=== PATIENT | male | born 1950 | race Caucasian/White ===

== ENCOUNTER 2018-06-06 11:15 | Inpatient (IN) | payer MEDICARE, BC ==
[~2018-06-06] VITALS: Ht 172.7 cm; Wt 74.3 kg
[~2018-06-06 11:15] MED LIST: ASPIRIN E.C. 8181 M1 PO; BETAPACE160 MG PO; CELEXA10 MG PO; CITALOPRAM10 MG PO; COUMADIN 5MG5 MG/TAB PO; LIPITOR20 MG PO; LOVENOX 8080 MG/0.8 SQ; MIRTAZAPINE15 MG PO; REMERON30 MG PO
[2018-06-06] MEDS ORDERED: COUMADIN 5MG5 MG/TAB (11:44)
[2018-06-06] MEDS ORDERED: BETAPACE 80MG80 MG PO (11:45)
[2018-06-06 12:02] LABS: BASO % 0.4 % (0.0-2.0); EOS # 0.1 (0.0-0.7); EOS % 1.1 % (0-4.0); GRAN # 7.8 (1.4-6.5); GRAN % 76.2 % (42.2-75.2); HEMATOCRIT 48.4 % (42.0-52.0); HEMOGLOBIN 16.8 g/dl (13.5-18.0); LYMPH # 1.5 (1.2-3.4); LYMPH % 14.8 % (20.0-51.0); MEAN CELL VOLUME 93 fl (80.0-100.0); MEAN CORPUSCULAR HEMOGLOBIN 32 pg (27.0-31.0); MEAN CORPUSCULAR HGB CONC 35 g/dl (33.0-37.0); MEAN PLATELET VOLUME 10.5 fl (7.4-10.4); MONO # 0.7 (0.1-0.6); MONO % 6.9 % (1.7-9.3); PLATELET COUNT 165 K/mm3 (130-400); RED BLOOD COUNT 5.23 M/mm3 (4.20-5.60); REDCELL DISTRIBUTION WIDTH-CV 13.1 % (11.5-14.5)
[2018-06-06 12:05] LABS: INR 2.3 (0.8-3.0); PROTHROMBIN TIME 26.7 SECONDS (9.7-12.8)
[2018-06-06 12:11] LABS: ALBUMIN 4.1 gm/dL (3.5-5.0); BILIRUBIN,TOTAL 0.6 mg/dL (0.0-1.0); CREATININE, serum 0.74 mg/dL (0.66-1.25); POTASSIUM 4.3 mmol/L (3.4-5.0); TOTAL PROTEIN 7.6 gm/dL (6.4-8.2)
[2018-06-06 14:32] VITALS: BP 152/86; PULSE 67; TEMP 98.6
[2018-06-06 15:40] VITALS: BP 163/70; PULSE 58; TEMP 98.3
[2018-06-06 16:40] VITALS: BP 163/70; PULSE 58; TEMP 98.4
[2018-06-06 19:25] VITALS: BP 129/74; PULSE 73; TEMP 97.6
[2018-06-06 20:53] VITALS: BP 147/80; PULSE 71; TEMP 98.1
[2018-06-07 03:30] VITALS: BP 151/85; PULSE 54; TEMP 97.5
[2018-06-07 06:14] LABS: BASO # 0.1 (0.0-0.2); BASO % 0.7 % (0.0-2.0); EOS # 0.2 (0.0-0.7); EOS % 3.1 % (0-4.0); GRAN # 4.1 (1.4-6.5); GRAN % 60.4 % (42.2-75.2); HEMATOCRIT 44.6 % (42.0-52.0); HEMOGLOBIN 15.4 g/dl (13.5-18.0); LYMPH # 1.7 (1.2-3.4); LYMPH % 25.3 % (20.0-51.0); MEAN CELL VOLUME 93 fl (80.0-100.0); MEAN CORPUSCULAR HEMOGLOBIN 32 pg (27.0-31.0); MEAN CORPUSCULAR HGB CONC 35 g/dl (33.0-37.0); MEAN PLATELET VOLUME 10.6 fl (7.4-10.4); MONO # 0.7 (0.1-0.6); MONO % 10.1 % (1.7-9.3); PLATELET COUNT 149 K/mm3 (130-400); REDCELL DISTRIBUTION WIDTH-CV 13.2 % (11.5-14.5)
[2018-06-07 06:18] LABS: INR 1.6 (0.8-3.0); PROTHROMBIN TIME 17.8 SECONDS (9.7-12.8)
[2018-06-07 06:31] LABS: CALCIUM 8.3 mg/dL (8.4-10.2); CREATININE, serum 0.84 mg/dL (0.66-1.25); POTASSIUM 3.7 mmol/L (3.4-5.0)
[2018-06-07 08:00] VITALS: BP 132/84; PULSE 93; TEMP 98.7
[2018-06-07 11:56] VITALS: BP 125/90; PULSE 107; TEMP 98.1
[2018-06-07 15:30] VITALS: BP 124/75; PULSE 94; TEMP 98.6
[2018-06-07 20:54] VITALS: BP 127/83; PULSE 96; TEMP 98.3
[2018-06-08] VITALS (15 sets, daily range): BP systolic 98–135; BP diastolic 64–87; PULSE 50–74; TEMP 97.8–98.6
[2018-06-08 06:36] LABS: INR 1.1 (0.8-3.0); PROTHROMBIN TIME 12.4 SECONDS (9.7-12.8)
[2018-06-09 00:41] VITALS: BP 120/65; PULSE 59; TEMP 97.6
[2018-06-09 04:51] VITALS: BP 132/70; PULSE 61; TEMP 97.5
[2018-06-09 06:21] LABS: INR 1.1 (0.8-3.0)
[2018-06-09 07:15] VITALS: BP 130/63; PULSE 68; TEMP 98.3
[2018-06-09 10:55] VITALS: BP 120/63; PULSE 68; TEMP 98.4
[2018-06-09] MEDS ORDERED: SENOKOT S 50 MG1 TAB PO (14:01)
[2018-06-09] MEDS ORDERED: NORCO 325 MG-7.1 TAB PO (14:01)
== END 2018-06-09 15:51 | disposition home or self-care (01) | DRG 494 ==
LOC: COL.ER 11:15 → SURG 12:57
PROVIDERS: Emergency Medicine; Internal Medicine; Orthopaedic Surgery
PROC: 0QSJXZZ Reposition Right Fibula, External Approach (ICD-10-PCS; 2018-06-06)
PROC: 0QSJ04Z Reposition Right Fibula with Internal Fixation Device, Open Approach (ICD-10-PCS; principal; 2018-06-08 13:30)
DX: S82.842A Displaced bimalleolar fracture of left lower leg, initial encounter for closed fracture (principal); W18.31XA Fall on same level due to stepping on an object, initial encounter; Z86.711 Personal history of pulmonary embolism; Z79.01 Long term (current) use of anticoagulants; E78.5 Hyperlipidemia, unspecified; I34.0 Nonrheumatic mitral (valve) insufficiency; F17.210 Nicotine dependence, cigarettes, uncomplicated; I27.20 Pulmonary hypertension, unspecified; I48.0 Paroxysmal atrial fibrillation; F32.9 Major depressive disorder, single episode, unspecified; M79.7 Fibromyalgia; Z85.46 Personal history of malignant neoplasm of prostate
CPT/HCPCS: 99222-AI; 99232-AI; 99239; C1713; J0690; J1100; J2250; J2270; J2405; J2704; J3010; J7030; J7120; Q4045

== ENCOUNTER 2020-10-18 22:36 | Emergency (ER) | payer MEDICARE, BC ==
[~2020-10-18] VITALS: Ht 172.7 cm; Wt 75.0 kg
[~2020-10-18 22:36] MED LIST changes: +BETAPACE 80MG80 MG PO; +COUMADIN 5MG5 MG/TAB; +NORCO 325 MG-7.1 TAB PO; +SENOKOT S 50 MG1 TAB PO
[2020-10-18 22:42] VITALS: TEMP 98.5
[2020-10-19 00:26] VITALS: BP 151/85; PULSE 53
== END 2020-10-19 00:32 | disposition home or self-care (01) ==
LOC: COL.ER 22:36
PROVIDERS: Emergency Medicine
DX: T59.814A Toxic effect of smoke, undetermined, initial encounter (principal); E78.5 Hyperlipidemia, unspecified; I25.10 Atherosclerotic heart disease of native coronary artery without angina pectoris; F17.210 Nicotine dependence, cigarettes, uncomplicated; Z86.711 Personal history of pulmonary embolism; Z79.82 Long term (current) use of aspirin; Z79.01 Long term (current) use of anticoagulants

== ENCOUNTER → 2020-12-14 | Outpatient (CLI) | payer MEDICARE, BC | LOC: COL.RAD 14:00 | DX: Z12.2 Encounter for screening for malignant neoplasm of respiratory organs (principal); F17.210 Nicotine dependence, cigarettes, uncomplicated; R91.8 Other nonspecific abnormal finding of lung field ==

== ENCOUNTER → 2021-04-26 | Outpatient (CLI) | payer MEDICARE, BC | LOC: COL.VAS 09:42 | DX: M79.89 Other specified soft tissue disorders (principal) ==

== ENCOUNTER → 2021-12-16 | Outpatient (CLI) | payer MEDICARE, BC | LOC: COL.RAD 12:56 | DX: Z12.2 Encounter for screening for malignant neoplasm of respiratory organs (principal); F17.210 Nicotine dependence, cigarettes, uncomplicated ==

== ENCOUNTER 2024-02-10 12:00 | Day surgery (SDC) | payer MEDICARE, BC ==
[~2024-02-10] VITALS: Ht 172.7 cm; Wt 73.9 kg
[~2024-02-10 12:00] MED LIST changes: -ASPIRIN E.C. 8181 M1 PO; +ASPIRIN E.C. 8181 MG PO; +CELEXA 20MG20 MG/TAB PO; -CELEXA10 MG PO; +COUMADIN 1MG1 MG/TAB PO; -COUMADIN 5MG5 MG/TAB; +LIPITOR 40MG TA40 MG PO; -LIPITOR20 MG PO; +LR 1,000 ML IV SCH
[2024-02-10] MEDS ORDERED: NS Flush 10 ML SYRINGE PRN ICA (12:30)
[2024-02-10] MEDS ORDERED: 1/2 NS 1,000 ML IV SCH (12:30)
[2024-02-10 13:04] LABS: HEMATOCRIT 45.7 % (42.0-52.0); HEMOGLOBIN 14.8 g/dl (13.5-18.0); MEAN CELL VOLUME 90 fl (80.0-100.0); MEAN CORPUSCULAR HEMOGLOBIN 29 pg (27-31); MEAN CORPUSCULAR HGB CONC 32 g/dl (33.0-37.0); PLATELET COUNT 171 K/mm3 (130-400); RED BLOOD COUNT 5.09 M/mm3 (4.20-5.60); REDCELL DISTRIBUTION WIDTH-CV 13.2 % (11.5-14.5)
[2024-02-10] MEDS ORDERED: NUVIGIL150 MG PO (13:14)
[2024-02-10] MEDS ORDERED: CENTRUM SILVER1 TAB PO (13:15)
[2024-02-10] MEDS ORDERED: LOPRESSOR 225 MG/TAB PO (13:15)
[2024-02-10] MEDS ORDERED: VITAMIN B-12500 MC4 PO (13:16)
[2024-02-10] MEDS ORDERED: NIACIN 100100 MG/TAB PO (13:17)
[2024-02-10 13:19] VITALS: BP 128/84; PULSE 92; TEMP 98.1
[2024-02-10 13:36] LABS: INR 2.3 (0.8-3.0); PROTHROMBIN TIME 24.7 SECONDS (9.7-12.8)
[2024-02-10 13:39] LABS: PARTIAL THROMBOPLASTIN TIME 36.7 SECONDS (26.0-37.0)
[2024-02-10 13:41] LABS: THYROID STIMULATING HORMONE 0.391 uIU/mL (0.350-4.940)
[2024-02-10] MEDS ORDERED: PACERONE400 MG PO (14:14)
[2024-02-10 14:30] LABS: CALCIUM 9.1 mg/dL (8.4-10.2); CREATININE, serum 1.02 mg/dL (0.72-1.25); MAGNESIUM 2.2 mg/dL (1.6-2.6); POTASSIUM 4.3 mEq/L (3.5-4.5)
--- NOTE | 2024-02-10 14:54 | NUR ---
Please see moderate sedation flowsheet for record of interventions, vitals and medications administered during cardioversion. Pt tolerated procedure well, and is now awake and alert talking with Dai, his , at bedside. Amiodarone bolus 150 mg in 100 ml has been given over about 10 minutes. Amiodarone 150 mg now infusing over 30 minutes, for a total dose of 300 mg IV amiodarone. A 500 ml bolus 1/2 ns was administered per order from Dr. Dejesus to treat hypotension during amiodarone bolus. Current bp 111/88. wctm
[2024-02-10 15:10] VITALS: BP 110/87; PULSE 64
[2024-02-10 15:15] VITALS: BP 133/78; PULSE 64
--- NOTE | 2024-02-10 15:16 | NUR ---
AMIODARONE 300 MG BOLUS COMPLETE. VSS. BS REPORT AND HANDOFF OF CARE TO EUGENIO KULKARNI.
[2024-02-10 15:30] VITALS: BP 126/88; BP 135/84; PULSE 54; PULSE 68
[2024-02-10 15:45] VITALS: BP 125/92; PULSE 58
--- NOTE | 2024-02-10 15:58 | NUR ---
Pt ambulated to EU12 with a steady gait, accompanied by . Pt was scheduled for a cardioversion. Pt was prepped for the procedure by CAYLA Martinez. Post procedure the pt was offered something to eat and drink. Accepted a water and a pudding. Pt remained on the express unit for about 1 hr post procedure. Discharge education and information discussed with the pt. No questions at this time. IV dc'd and the pt was taken down by wheelchair to wifes car.
[2024-02-10] MEDS ORDERED: NS Flush 10 ML SYRINGE BID ICA SCH (21:00)
== END 2024-02-10 16:03 | disposition home or self-care (01) ==
LOC: COL.CAR 12:00
PROVIDERS: Internal Medicine Cardiovascular Disease
DX: I48.0 Paroxysmal atrial fibrillation (principal); E78.2 Mixed hyperlipidemia; F17.210 Nicotine dependence, cigarettes, uncomplicated; Z85.46 Personal history of malignant neoplasm of prostate; Z79.82 Long term (current) use of aspirin; Z79.01 Long term (current) use of anticoagulants; Z79.899 Other long term (current) drug therapy
CPT/HCPCS: J0282; J2704; J7060